=== PATIENT | male | born 1960 | race Caucasian/White ===

== ENCOUNTER 2017-07-22 21:45 | Emergency (ER) | payer MEDICAID ==
[~2017-07-22] VITALS: Ht 172.7 cm; Wt 72.6 kg
[2017-07-22 22:17] VITALS: BP 129/68
[2017-07-22] MEDS ORDERED: Tetracaine 0.5% Opth 4ml Soln RIGHT EYE ONE (22:30)
[2017-07-22] MEDS ORDERED: Fluorescein Strips RIGHT EYE ONE (22:30)
--- NOTE | 2017-07-22 22:35 | Emergency Room Report ---
History of Present Illness General Chief Complaint: Foreign Body Source: Patient Present Illness HPI Patient reports that he was grinding metal at approximately 11:00 this morning patient was wearing glasses However soon after that started having discomfort to the right eye Has pain with light Also causing some mild headache Denies any chest pain or shortness of breath denies any back or flank pain Denies any vomiting Pain is 6 out of 10 Allergies: Coded Allergies: No Known Allergies (Unverified , 07/22/17) Patient History Past Medical History: see triage record Pertinent Family History: none Reviewed Nursing Documentation: PMH: Agreed; PSxH: Agreed Nursing Documentation-PMH Past Medical History: No Stated History History Of Psychiatric Problem: Yes - Depression Review of Systems All Other Systems: negative except mentioned in HPI Physical Exam Vital Signs Date Time Temp Pulse Resp B/P (MAP) Pulse Ox O2 Delivery O2 Flow Rate FiO2 07/22/17 22:04 98.5 95 16 129/68 97 Room Air 98.4 Sp02 EP Interpretation: reviewed, normal General Appearance: well appearing, no apparent distress Head: normocephalic, atraumatic Eyes: right eye Scleral Injection - Fluorescing stain with tetracaine drops does not reveal any obvious abrasion or uptake; bilateral eye PERRL, bilateral eye EOMI ENT: hearing grossly normal, normal pharynx, TMs + canals normal, uvula midline Neck: full range of motion, supple, no meningismus, no bony tend Respiratory: lungs clear, normal breath sounds, no rhonchi, no respiratory distress, no retraction, no accessory muscle use Cardiovascular #1: normal peripheral pulses, regular rate, rhythm, no edema, no gallop, no JVD, no murmur Gastrointestinal: normal bowel sounds, non tender, soft, no mass, no organomegaly, non-distended, no guarding, no hernia, no pulsatile mass, no rebound Musculoskeletal: normal inspection Neurologic: oriented x3, responsive, fish seiner III-XII nml as tested, motor strength/ tone normal, sensory intact Psychiatric: mood/affect normal Skin: normal color, no rash, warm/dry, palpation normal Lymphatic: normal inspection, no adenopathy Medical Decision Making Diagnostic Impression: Primary Impression: Eye burn Additional Impression: Corneal abrasion ER Course Multiple differentials were considered patient has fluorescing exam with tetracaine drops the patient pain is significantly improved after the tetracaine Fluorescing does not show any uptake I cannot visualize any obvious foreign bodies Patient's pressure in both eyes are equal There is no signs of any ruptured globe Given the patient's presentation and symptoms appear to have likely flash burn injury of the right eye Patient is require close ophthalmology follow-up is placed on antibiotics And follow closely Last Vital Signs Date Time Temp Pulse Resp B/P (MAP) Pulse Ox O2 Delivery O2 Flow Rate FiO2 07/22/17 22:04 98.5 95 16 129/68 97 Room Air 98.4 Status: improved Disposition: HOME, SELF-CARE Condition: Improved Scripts Ibuprofen* (MOTRIN*) 600 Mg Tablet 600 MG ORAL Q8H PRN for For Pain, #20 TAB 0 Refills Prov: Todd Briggs DO 07/22/17 Referrals: [facility] (PCP) Additional Instructions: Patient is provided with the discharge instructions notified to follow up with primary doctor in the next 2-3 days otherwise return to the er with any worsening symptoms. Please note that this report is being documented using [employer] technology. This can lead to erroneous entry secondary to incorrect interpretation by the dictating instrument. Todd Briggs DO Jul 22, 2017 22:35
[2017-07-22] MEDS ORDERED: IBUPROFEN600 MG ORAL (22:48)
[2017-07-22 22:58] VITALS: BP 0/0
== END 2017-07-22 22:58 | disposition home or self-care (01) ==
LOC: EMR 22:19
DX: S05.01XA Injury of conjunctiva and corneal abrasion without foreign body, right eye, initial encounter (principal); X58.XXXA Exposure to other specified factors, initial encounter; Y92.9 Unspecified place or not applicable; F32.9 Major depressive disorder, single episode, unspecified
CPT/HCPCS: 99283

== ENCOUNTER 2017-09-17 17:45 | Emergency (ER) | payer MEDICAID ==
[~2017-09-17] VITALS: Ht 170.2 cm; Wt 72.6 kg
[~2017-09-17 17:45] MED LIST: IBUPROFEN600 MG ORAL
[2017-09-17] MEDS ORDERED: LORazepam 1mg tab ORAL ONE (18:15)
[2017-09-17] MEDS ORDERED: RISPERDAL1 MG PO (18:47)
[2017-09-17] MEDS ORDERED: ATIVAN1 MG ORAL (18:47)
[2017-09-17 18:54] VITALS: BP 124/71
--- NOTE | 2017-09-17 19:39 | Emergency Room Report ---
History of Present Illness General Chief Complaint: Behavioral Complaint Source: Patient, EMS Present Illness HPI 57-year-old male presents ED complaining of hearing voices. Brought in by [facility]. Patient states he's been hearing voices for the last 3 days stating they wanted hurt him. Patient denies SI or HI. She admits to using methamphetamines 3 days ago. Patient denies chest pain or shortness of breath. Patient states that he used to take risperdol but states he was stopped by his psychiatrist several months ago. States it did help him. No other aggravating relieving factors. Denies any other associated symptoms Allergies: Coded Allergies: No Known Allergies (Unverified , 07/22/17) Patient History Past Medical History: psych hx Past Surgical History: none Pertinent Family History: none Social History: Reports: drug use; Denies: smoking, alcohol use Immunizations: UTD Reviewed Nursing Documentation: PMH: Agreed; PSxH: Agreed Nursing Documentation-PMH Past Medical History: No History, Except For History Of Psychiatric Problem: Yes - BIPOLAR, SCHIZOPHRENIA Review of Systems All Other Systems: negative except mentioned in HPI Physical Exam Vital Signs Date Time Temp Pulse Resp B/P (MAP) Pulse Ox O2 Delivery O2 Flow Rate FiO2 09/17/17 17:50 99.9 120 18 134/84 98 Room Air 99.9 Sp02 EP Interpretation: reviewed, normal General Appearance: no apparent distress, alert, GCS 15, non-toxic Head: normocephalic, atraumatic Eyes: bilateral eye normal inspection, bilateral eye PERRL ENT: hearing grossly normal, normal pharynx, no angioedema, normal voice Neck: full range of motion, supple/symm/no masses Respiratory: chest non-tender, lungs clear, normal breath sounds, speaking full sentences Cardiovascular #1: no edema, tachycardia Cardiovascular #2: 2+ carotid (R), 2+ carotid (L), 2+ radial (R), 2+ radial (L) , 2+ dorsalis pedis (R), 2+ dorsalis pedis (L) Gastrointestinal: normal bowel sounds, non tender, soft, non-distended, no guarding, no rebound Rectal: deferred Genitourinary: normal inspection, no CVA tenderness Musculoskeletal: back normal, gait/station normal, normal range of motion, non- tender Neurologic: alert, oriented x3, responsive, motor strength/tone normal, sensory intact, speech normal Psychiatric: judgement/insight normal, memory normal, mood/affect normal, anxious Reflexes: 3+ bicep (R), 3+ bicep (L), 3+ tricep (R), 3+ tricep (L), 3+ knee (R) , 3+ knee (L) Skin: normal color, no rash, warm/dry, well hydrated Lymphatic: no adenopathy Medical Decision Making Diagnostic Impression: Primary Impression: Hearing voices Additional Impression: Methamphetamine abuse ER Course Hospital Course 57-year-old M presents to ED hearing voices. used methamphetamines today Differential diagnoses include: Psychosis, EtOH, drug abuse Clinical course patient placed on stretcher. On threat monitoring analyst. After initial history, physical exam reveals a middle-aged male in no acute distress. Does appear anxious. Somewhat tachycardic. Not diaphoretic. No evidence of suicidal or homicidal ideation. Not danger to himself or others. Given Ativan here and on reassessment is feeling somewhat better. I will start patient back on Risperdal 1 mg 3 times a day when necessary. recommend close follow-up with psychiatry i. I feel this is a highly complex case requiring extensive working including EKG/Rhythm strip, Xray/CT/US, Blood/urine lab work, repeat exams while in ED, and administration of strong opiates/narcotics for pain control, admission to hospital or close patient follow up. Diagnosis -hearing voices, methamphetamine abuse Stable and discharged to home with Rx Ativan, Risperdol. Followup with PMD. Return to ED if symptoms recur or worsen Last Vital Signs Date Time Temp Pulse Resp B/P (MAP) Pulse Ox O2 Delivery O2 Flow Rate FiO2 09/17/17 18:54 98.7 99 16 124/71 100 Room Air 99.9 Status: improved Disposition: HOME, SELF-CARE Condition: Stable Scripts Risperidone* (RISPERDAL*) 1 Mg Tablet 1 MG PO TID for 30 Days, TAB Prov: Valente Carey MD 09/17/17 Lorazepam* (ATIVAN*) 1 Mg Tablet 1 MG ORAL THREE TIMES A DAY, #20 TAB Prov: Valente Carey MD 09/17/17 Referrals: [facility] (PCP) Patient Instructions: Stimulant Use Disorder-Amphetamines Valente Carey MD Sep 17, 2017 19:39
== END 2017-09-17 18:54 | disposition home or self-care (01) ==
LOC: EDBD 17:45 → EDUNIT# 17:45 → EMR 18:00
DX: F15.10 Other stimulant abuse, uncomplicated (principal); F20.9 Schizophrenia, unspecified; F31.9 Bipolar disorder, unspecified
CPT/HCPCS: 99283

== ENCOUNTER 2017-09-24 10:54 | Emergency (ER) | payer MEDICAID ==
[~2017-09-24] VITALS: Ht 170.2 cm; Wt 72.6 kg
[~2017-09-24 10:54] MED LIST changes: +ATIVAN1 MG ORAL; +RISPERDAL1 MG PO
[2017-09-24 10:59] VITALS: BP 130/78
[2017-09-24 11:22] VITALS: BP 130/78
--- NOTE | 2017-09-24 12:53 | Emergency Room Report ---
History of Present Illness General Chief Complaint: Medication Refill Source: Patient Present Illness HPI Patient presents initially apologetic for the way he was behaving last time he was here about 5-6 days ago Patient reports that he was given prescription by the physician however has lost the prescription and unable to fill the medication Patient has history of schizophrenia and bipolar disorder Reports that Risperdal has helped him in the past However has not had any medications since before his last presentation Also reports that he was hearing voices intermittently Denies any homicidal or suicidal thoughts Denies that the voices are telling him to have any harm to himself Patient drove here on his own Denies any chest pain or shortness of breath denies any other focal weakness Allergies: Coded Allergies: No Known Allergies (Unverified , 07/22/17) Patient History Past Medical History: see triage record Pertinent Family History: none Reviewed Nursing Documentation: PMH: Agreed; PSxH: Agreed Nursing Documentation-PMH Past Medical History: No History, Except For History Of Psychiatric Problem: Yes - schizophrenia Review of Systems All Other Systems: negative except mentioned in HPI Physical Exam Vital Signs Date Time Temp Pulse Resp B/P (MAP) Pulse Ox O2 Delivery O2 Flow Rate FiO2 09/24/17 10:59 98.4 118 18 130/78 98 Room Air 98.4 Sp02 EP Interpretation: reviewed, normal General Appearance: well appearing, no apparent distress Head: normocephalic, atraumatic Eyes: bilateral eye PERRL, bilateral eye EOMI ENT: hearing grossly normal, normal pharynx, TMs + canals normal, uvula midline Neck: full range of motion, supple, no meningismus, no bony tend Respiratory: lungs clear, normal breath sounds, no rhonchi, no respiratory distress, no retraction, no accessory muscle use Cardiovascular #1: normal peripheral pulses, regular rate, rhythm, no edema, no gallop, no JVD, no murmur Gastrointestinal: normal bowel sounds, non tender, soft, no mass, no organomegaly, non-distended, no guarding, no hernia, no pulsatile mass, no rebound Genitourinary: no CVA tenderness Musculoskeletal: normal inspection Neurologic: oriented x3, responsive, data warehouse analyst III-XII nml as tested, motor strength/ tone normal, sensory intact Psychiatric: mood/affect normal - Denies any active auditory hallucinations, denies any suicidal or homicidal thoughts Skin: normal color, no rash, warm/dry, palpation normal Lymphatic: normal inspection, no adenopathy Medical Decision Making Diagnostic Impression: Primary Impression: schizophrenia ER Course Patient was provided with a medication here patient has had fairly noncompliant follow-up with his prescriptions therefore I did not feel that writing a prescription was appropriate however I did contact [facility] at [phone] They are open currently on a [address] and able to see the patient I did provide the patient a copy of the resource and the specific location Patient is awake and alert Does not have any active thoughts of suicidal or homicidal thoughts Patient is mobile and capable he has driven to this emergency room on several occasions And is provided appropriate outpatient follow-up Last Vital Signs Date Time Temp Pulse Resp B/P (MAP) Pulse Ox O2 Delivery O2 Flow Rate FiO2 09/24/17 11:22 98.4 18 130/78 98 Room Air 98.4 09/24/17 10:59 118 Status: improved Disposition: HOME, SELF-CARE Condition: Stable Referrals: [facility] (PCP) Patient Instructions: Schizophrenia Additional Instructions: You have been provided with phone number and address of several urgent outpatient psychiatric facilities. Please follow up closely Todd Briggs DO Sep 24, 2017 12:53
== END 2017-09-24 11:30 | disposition home or self-care (01) ==
LOC: EMR 11:24
DX: F20.9 Schizophrenia, unspecified (principal)
CPT/HCPCS: 99283

== ENCOUNTER 2018-04-25 03:56 | Emergency (ER) | payer MEDICAID ==
[~2018-04-25] VITALS: Ht 172.7 cm; Wt 72.6 kg
[~2018-04-25 03:56] MED LIST changes: +BUPROPION XL300 MG ORAL; +RISPERDAL0.25 MG ORAL; +TRAZODONE HCL5 GM MC
--- NOTE | 2018-04-25 04:07 | Emergency Room Report ---
History of Present Illness General Chief Complaint: Behavioral Complaint Source: Patient Present Illness HPI Patient reports that he has been off his medications for the past 3 weeks He has a history of schizophrenia Is on Wellbutrin and risperidone Patient reports that just prior to arrival he was started here voices Denies any homicidal or suicidal thoughts Denies any chest pain or shortness of breath denies any other medical complaints Denies any other visual hallucinations Allergies: Coded Allergies: No Known Allergies (Unverified , 07/22/17) Patient History Past Medical History: see triage record Pertinent Family History: none Reviewed Nursing Documentation: PMH: Agreed; PSxH: Agreed Nursing Documentation-PM Past Medical History: No History, Except For History Of Psychiatric Problem: Yes - clinical depression/psychosis Review of Systems All Other Systems: negative except mentioned in HPI Physical Exam Vital Signs Date Time Temp Pulse Resp B/P (MAP) Pulse Ox O2 Delivery O2 Flow Rate FiO2 04/25/18 03:43 98.4 84 22 135/84 99 Room Air Sp02 EP Interpretation: reviewed, normal General Appearance: well appearing, no apparent distress Head: normocephalic, atraumatic Eyes: bilateral eye PERRL, bilateral eye EOMI ENT: hearing grossly normal, normal pharynx, TMs + canals normal, uvula midline Neck: full range of motion, supple, no meningismus, no bony tend Respiratory: lungs clear, normal breath sounds, no rhonchi, no respiratory distress, no retraction, no accessory muscle use Cardiovascular #1: normal peripheral pulses, regular rate, rhythm, no edema, no gallop, no JVD, no murmur Gastrointestinal: normal bowel sounds, non tender, soft, no mass, no organomegaly, non-distended, no guarding, no hernia, no pulsatile mass, no rebound Genitourinary: no CVA tenderness Musculoskeletal: normal inspection Neurologic: oriented x3, responsive, sales marketing manager III-XII nml as tested, motor strength/ tone normal, sensory intact Psychiatric: mood/affect normal, no suicidal/homicidal ideation, other - Patient reports hearing voices, however he cannot distant which with the voices say Skin: normal color, no rash, warm/dry, palpation normal Lymphatic: normal inspection, no adenopathy Medical Decision Making Diagnostic Impression: Primary Impression: Schizophrenia ER Course Patient reports that he has been off his medications for the past 3 weeks At this time he is agreeable to taking his risperidone Denies any homicidal or suicidal thoughts Patient does not meet any criteria for psychiatric hold/emergent evaluation Upon reevaluating the patient and having discussion after medication Patient reports that he does not need to speak to a psychiatrist he does not have any auditory hallucinations any further Denies any homicidal or suicidal thoughts And has appropriate outpatient follow-up Last Vital Signs Date Time Temp Pulse Resp B/P (MAP) Pulse Ox O2 Delivery O2 Flow Rate FiO2 04/25/18 03:43 98.4 84 22 135/84 99 Room Air Status: improved Disposition: HOME, SELF-CARE Condition: Improved Scripts Risperidone* (RISPERDAL*) 2 Mg Tablet 2 MG ORAL DAILY, #30 TAB 0 Refills Prov: Todd Briggs DO 04/25/18 Additional Instructions: Patient is provided with the discharge instructions notified to follow up with primary doctor in the next 2-3 days otherwise return to the er with any worsening symptoms. Please note that this report is being documented using [employer] technology. This can lead to erroneous entry secondary to incorrect interpretation by the dictating instrument. Todd Briggs DO Apr 25, 2018 04:07
[2018-04-25 04:48] VITALS: BP 135/84
--- NOTE | 2018-04-25 04:55 | NUR ---
ED Nurse Note: Pt arrived to ED for auditory hallucinations. States he has been out of his medication for a few days. Denying wanting to harm himself. States voices at the moment are harmless.
[2018-04-25] MEDS ORDERED: RISPERDAL2 MG ORAL (05:50)
[2018-04-25 07:03] VITALS: BP 132/77
--- NOTE | 2018-04-25 07:03 | NUR ---
ED Nurse Note: Pt cleared by MD. Discharge instructions and prescriptions provided. Pt verbalized understanding of all instructions. All belongings were taken with patient. Pt ambulated out of ED with steady gait. ID band removed. VSS.
== END 2018-04-25 07:08 | disposition home or self-care (01) ==
LOC: EDBD 03:56 → EMR 04:06
DX: F20.9 Schizophrenia, unspecified (principal); F32.9 Major depressive disorder, single episode, unspecified; Z91.14 Patient's other noncompliance with medication regimen
CPT/HCPCS: 99282